=== PATIENT | male | born 1990 | race Caucasian/White ===

== ENCOUNTER 2019-11-14 19:00 | Outpatient (CLI) | payer BC | END 2019-11-14 19:01 | disposition home or self-care (01) | LOC: SLEEPLAB 19:00 | PROVIDERS: ATTEND Family Medicine | DX: G47.33 Obstructive sleep apnea (adult) (pediatric) (principal); G47.10 Hypersomnia, unspecified; R53.83 Other fatigue; R09.02 Hypoxemia | CPT/HCPCS: 95806 ==

== ENCOUNTER 2019-11-26 20:30 | Outpatient (CLI) | payer BC | END 2019-11-26 20:31 | disposition home or self-care (01) | LOC: SLEEPLAB 20:30 | PROVIDERS: ATTEND Family Medicine | DX: G47.33 Obstructive sleep apnea (adult) (pediatric) (principal); G47.10 Hypersomnia, unspecified; R53.83 Other fatigue; R06.83 Snoring; E66.9 Obesity, unspecified; Z68.44 Body mass index [BMI] 60.0-69.9, adult | CPT/HCPCS: 95811 ==

== ENCOUNTER 2020-03-21 09:00 | Outpatient (CLI) | payer BC | END 2020-03-21 09:01 | disposition home or self-care (01) | LOC: DTY/OP 09:00 | PROVIDERS: ATTEND Surgery | DX: G47.33 Obstructive sleep apnea (adult) (pediatric) (principal); G47.34 Idiopathic sleep related nonobstructive alveolar hypoventilation; Z68.44 Body mass index [BMI] 60.0-69.9, adult | CPT/HCPCS: 97802 ==

== ENCOUNTER 2020-04-25 11:40 | Outpatient (CLI) | payer BC | END 2020-04-25 11:41 | disposition home or self-care (01) | LOC: DTY/OP 11:40 | PROVIDERS: ATTEND Surgery | DX: G47.33 Obstructive sleep apnea (adult) (pediatric) (principal); G47.34 Idiopathic sleep related nonobstructive alveolar hypoventilation; Z68.44 Body mass index [BMI] 60.0-69.9, adult | CPT/HCPCS: 97802 ==

== ENCOUNTER 2020-05-28 15:49 | Outpatient (CLI) | payer BC | END 2020-05-28 15:50 | disposition home or self-care (01) | LOC: DTY/OP 15:49 | PROVIDERS: ATTEND Surgery | DX: G47.33 Obstructive sleep apnea (adult) (pediatric) (principal); G47.34 Idiopathic sleep related nonobstructive alveolar hypoventilation; Z68.44 Body mass index [BMI] 60.0-69.9, adult | CPT/HCPCS: 97802 ==

== ENCOUNTER 2020-08-22 12:16 | Outpatient (CLI) | payer BC ==
--- NOTE | 2020-08-22 13:58 | RAD ---
2 VIEW CHEST: Date: 08/22/2020 HISTORY: Dyspnea. No comparison. FINDINGS: Heart appears prominent. Lung moreno are clear. Osseous structures unremarkable. IMPRESSION: Prominent cardiac silhouette. No acute lung process. POS: [facility]
== END 2020-08-22 12:17 | disposition home or self-care (01) ==
LOC: BICRAD 12:16
PROVIDERS: ATTEND Internal Medicine Pulmonary Disease
DX: R06.00 Dyspnea, unspecified (principal); I51.7 Cardiomegaly
CPT/HCPCS: 71046

== ENCOUNTER 2021-02-18 07:00 | Inpatient (IN) | payer BC ==
[2021-02-20 12:52] VITALS: BMI 65.7
[2021-02-21] MEDS ORDERED: Lidocaine 2% w/Epinephrine 1:200K 20 ML VIAL ONE (10:26)
[2021-02-21] MEDS ORDERED: Bupivacaine 0.25% HCL 30 ML VIAL ONE (10:26)
[2021-02-21] MEDS ORDERED: Fentanyl 250 MCG/5 ML VIAL ONE (10:44)
[2021-02-21] MEDS ORDERED: PROPOFOL 200 MG/20 ML VIAL ONE (10:53)
[2021-02-21] MEDS ORDERED: Lidocaine 1% PF 5 ML VIAL ONE (10:53)
[2021-02-21] MEDS ORDERED: Glycopyrrolate 0.2 MG/ML 5 ML SYRINGE ONE (10:53)
[2021-02-21] MEDS ORDERED: Dexamethasone 20 MG/5 ML VIAL ONE (10:53)
[2021-02-21] MEDS ORDERED: Ondansetron PF 4 MG/2 ML Vial ONE ×2 (10:53→13:18)
[2021-02-21] MEDS ORDERED: Rocuronium Bromide 10 MG/ML (10ML VIAL) ONE (10:53)
[2021-02-21] MEDS ORDERED: Heparin 5,000 UNITS/ML VIAL ONE (10:55)
[2021-02-21] MEDS ORDERED: Promethazine HCl 25 MG/ML VIAL ONE (12:47)
[2021-02-21] MEDS ORDERED: Dextrose 50% Abboject 50 ML SYRINGE SLOW IVP PRN (13:01)
[2021-02-21] MEDS ORDERED: hydrALAZINE 20 MG/ML VIAL SLOW IVP PRN (13:01)
[2021-02-21] MEDS ORDERED: Promethazine HCl 25 MG/ML VIAL IM PRN ×2 (13:01→13:15)
[2021-02-21] MEDS ORDERED: Dextrose 5% in Water 1,000 ML IV PRN (13:01)
[2021-02-21] MEDS ORDERED: diphenhydrAMINE 50 MG/ML VIAL IVP PRN (13:01)
[2021-02-21] MEDS ORDERED: Hydrocodone-Acetamin 15 ML UDCUP PO PRN (13:01)
[2021-02-21] MEDS ORDERED: Ondansetron PF 4 MG/2 ML Vial IVP PRN ×2 (13:01→13:15)
[2021-02-21] MEDS ORDERED: Naloxone HCl 0.4 mg/ml Vial IV PRN (13:15)
[2021-02-21] MEDS ORDERED: Zolpidem Tartrate 5 MG TAB PO PRN (13:15)
[2021-02-21] MEDS ORDERED: Ketorolac Tromethamine 30 MG/ML VIAL IVP PRN ×2 (13:15)
[2021-02-21] MEDS ORDERED: diphenhydrAMINE 25 MG CAP PO PRN (13:15)
[2021-02-21] MEDS ORDERED: diphenhydrAMINE 50 MG/ML VIAL IM/IV PRN (13:15)
[2021-02-21] MEDS ORDERED: fentaNYL Citrate/PF 2,000 MCG in Sodium Chloride 0.9% 60 ML IV PRN (13:15)
[2021-02-21] MEDS: D5 1/2 NS w/20 mEq KCL 1,000 ML IV SCH ×2 (16:08→21:11)
[2021-02-21] MEDS ORDERED: Ketorolac Tromethamine 30 MG/ML VIAL IVP SCH ×2 (18:00)
[2021-02-21] MEDS ORDERED: Enoxaparin Sodium 40 MG/0.4 ML SYRINGE SC SCH (21:00)
[2021-02-22] MEDS: D5 1/2 NS w/20 mEq KCL 1,000 ML IV SCH (01:03)
[2021-02-22 05:52] LABS: #Lymphocytes 0.9 thou/uL (1.20-3.40); #Monocytes 0.3 thou/uL (0.11-0.59); #Neutrophils 5.8 thou/uL (1.40-6.50); %Eosinophils 0.1 % (0.0-10.0); %Lymphocytes 13.3 % (21.0-51.0); %Monocytes 4.9 % (0.0-10.0); %Neutrophils 81.8 % (42.0-75.0); Hemoglobin 14.4 g/dL (14.0-18.0); Mean Corpuscular HGB CONC 32.8 g/dL (32.0-36.0); Mean Corpuscular Hemoglobin 27.9 pg (27.0-31.0); Mean Corpuscular Volume 85.2 fL (78.0-98.0); Mean Platelet Volume 8.7 fL (7.4-10.4); Platelet Count 195 thou/uL (130-400); RBC Distribution Width 12.4 % (11.5-14.5); Red Blood Cell (RBC) Count 5.17 mill/uL (4.70-6.10); White Blood Cell (WBC) Count 7.1 thou/uL (4.8-10.8)
[2021-02-22 06:01] LABS: Anion Gap 17 mmol/L (10-20); BUN (Urea Nitrogen) 5 mg/dL (8.9-20.6); Calc. Creatinine Clearance 408 mL/min (70-130); Calcium 8.9 mg/dL (7.8-10.44); Carbon Dioxide 23 mmol/L (22-29); Chloride 100 mmol/L (98-107); Glucose 120 mg/dL (70-105); Potassium 4.1 mmol/L (3.5-5.1); Sodium 136 mmol/L (136-145)
[2021-02-22] MEDS ORDERED: Pantoprazole 40 MG VIAL IVP SCH (09:00)
[2021-02-22] MEDS ORDERED: Hydrocodone-Acetamin 15 ML UDCUP PO PRN (10:24)
[2021-02-22 11:17] VITALS: BP 123/74; TEMP 98.5
== END 2021-02-22 13:45 | disposition home or self-care (01) | DRG 621 ==
LOC: SURG A 02-21 08:15 → SURG B 02-21 15:06
PROVIDERS: ADMIT Surgery; ATTEND Surgery
PROC: 0DB64Z3 Excision of Stomach, Percutaneous Endoscopic Approach, Vertical (ICD-10-PCS; principal; 2021-02-21)
DX: E66.01 Morbid (severe) obesity due to excess calories (principal); G47.33 Obstructive sleep apnea (adult) (pediatric); Z68.44 Body mass index [BMI] 60.0-69.9, adult; Z79.899 Other long term (current) drug therapy
CPT/HCPCS: 36415; 71046; 80048; 80053; 83036; 85025; 87635; 88307; 93005; 93010; C9113; J0690; J1100; J1644; J1650; J2405; J2550; J2704; J3010; J3480; S0020; U0003; U0005

== ENCOUNTER 2021-02-18 07:24 | Outpatient (CLI) | payer BC ==
[2021-02-18 09:44] LABS: #Eosinphils 0.1 10x3/uL (0.0-0.5); #Monocytes 0.2 10x3/uL (0.0-1.1); #Neutrophils 2.3 10x3/uL (1.5-8.4); %Basophils 0.2 % (0.0-2.0); %Eosinophils 2.5 % (0.0-6.0); %Lymphocytes 40.1 % (18.0-47.0); Hemoglobin 14.8 g/dL (13.5-17.5); Mean Corpuscular Hemoglobin 27.5 pg (27.0-33.0); Mean Corpuscular Volume 85.7 fl (81.2-95.1); Mean Platelet Volume 10.9 fl (7.4-10.4); Platelet Count 193 10x3/uL (150-450); Red Blood Cell (RBC) Count 5.39 10x6/uL (4.32-5.72); White Blood Cell (WBC) Count 4.4 10x3/uL (3.5-10.5)
[2021-02-18 09:49] LABS: ALT (SGPT) 23 U/L (8-55); AST (SGOT) 14 U/L (5-34); Albumin 4.7 g/dL (3.5-5.0); Alkaline Phosphatase 110 U/L (40-110); Anion Gap 14 mmol/L (10-20); BUN (Urea Nitrogen) 15 mg/dL (8.9-20.6); Bilirubin, Total 0.5 mg/dL (0.2-1.2); Calc. Creatinine Clearance 0 mL/min (70-130); Calcium 9.5 mg/dL (7.8-10.44); Carbon Dioxide 31 mmol/L (22-29); Chloride 100 mmol/L (98-107); Globulin 2.7 g/dL (2.4-3.5); Glucose 105 mg/dL (70-105); Potassium 4.2 mmol/L (3.5-5.1); Protein, Total 7.4 g/dL (6.0-8.3); Sodium 141 mmol/L (136-145)
[2021-02-18 14:42] LABS: Hemoglobin A1c 5.3 % (4.0-6.0)
[2021-02-18 14:56] LABS: SARS-CoV-2 PCR by NAA Not Detected (NotDetected)
== END 2021-02-18 07:25 | disposition home or self-care (01) ==
LOC: LABBT 07:24
PROVIDERS: ATTEND Surgery
DX: Z01.818 Encounter for other preprocedural examination (principal); E66.01 Morbid (severe) obesity due to excess calories; Z20.822 Contact with and (suspected) exposure to COVID-19
CPT/HCPCS: 71046; 80053; 83036; 85025; 87635; 93005; 93010; U0003; U0005